=== PATIENT | male | born 1985 | race Native Hawaiian/Other Pacific Islander ===

== ENCOUNTER 2019-04-08 11:22 | Emergency (ER) | payer OTHER ==
[~2019-04-08] VITALS: Ht 175.3 cm; Wt 90.7 kg
[2019-04-08 12:08] LABS: PLATELET COUNT 304 K/uL (142-355)
[2019-04-08 12:14] LABS: POTASSIUM 3.2 mmol/L (3.6-5.2)
[2019-04-08 13:50] VITALS: BP 130/80; TEMP 98.1
== END 2019-04-08 13:51 | disposition home or self-care (01) ==
LOC: ED 11:22
PROVIDERS: Family Medicine
DX: S46.911A Strain of unspecified muscle, fascia and tendon at shoulder and upper arm level, right arm, initial encounter (principal); E87.6 Hypokalemia
CPT/HCPCS: 80053; 80307; 81000; 85027; 99283; J1885

== ENCOUNTER 2021-08-01 10:15 | Emergency (ER) | payer OTHER ==
[~2021-08-01] VITALS: Ht 175.3 cm; Wt 90.7 kg
[2021-08-01 10:20] VITALS: TEMP 97.5
[2021-08-01 11:08] VITALS: BP 150/66
== END 2021-08-01 11:10 | disposition home or self-care (01) ==
LOC: ED 10:15
DX: S53.491A Other sprain of right elbow, initial encounter (principal); X58.XXXA Exposure to other specified factors, initial encounter; Y92.89 Other specified places as the place of occurrence of the external cause
CPT/HCPCS: 96372; 99283; J1885

== ENCOUNTER 2022-06-02 14:21 | Outpatient (CLI) | payer BC | END 2022-06-02 19:43 | disposition home or self-care (01) | LOC: MRI 14:21 | PROVIDERS: ATTEND Registered Nurse | DX: M54.12 Radiculopathy, cervical region (principal) ==